=== PATIENT | female | born 1980 | race Caucasian/White ===

== ENCOUNTER 2016-12-29 00:22 | Emergency (ER) | payer BC, OTHER ==
[~2016-12-29] VITALS: Ht 165.1 cm; Wt 100.0 kg
[~2016-12-29 00:22] MED LIST: FAMO-137 PO; HYDR-4246 PO; IBUP-1724 PO; NAPR-849 PO; NO ROUTINE MEDS; PROC-14 PO
--- OUTSIDE RECORDS SUMMARY | 2016-12-29 00:33 | XMS REPORT | Continuity of Care Document ---
Author Author [facility] Organization [facility] Address Unknown Phone Unavailable Support Name Relationship Address Phone JOSSIE PETERS MD Caregiver [address] [place] [address] Unavailable OSVALDO GARCIA MD Caregiver [address] [place] [address] Unavailable KIRSTEN MUHAMMAD Next Of Kin [address] [place] [address] Insurance Providers Guarantor Izabela Mariscal Address [address] [phone] Email DENIED/NO TO PORT Payer [facility] Policy Number [id number] Subscriber's Name Izabela Mariscal Relationship 18 Self Group Number [id number] Payer Workers Compensation Subscriber's Name Izabela Mariscal Relationship 18 Self Chief Complaint and Reason for Visit Chief Complaint Dyspnea/Respdistress Reason for Visit Chemical exposure Viral gastroenteritis Problems Active Problems Medical Problem Onset Date Status Allergic reaction Unknown Acute Anaphylaxis Unknown Acute Hoffman's palsy Unknown Chronic Cellulitis Unknown Acute Cellulitis Unknown Acute Cellulitis of knee, left Unknown Acute Chest pressure Unknown Acute Contusion of hand Unknown Acute Difficulty breathing Unknown Acute Numbness and tingling of right arm and leg Unknown Acute Patellar bursitis of left knee Unknown Acute Sinusitis Unknown Acute Throat swelling Unknown Acute Past Problems Medical Problem Onset Date Chemical exposure Unknown Right knee pain Unknown Viral gastroenteritis Unknown Medications Current Home Medications Medication Dose Units Route Directions Days Qty Instructions Start Date Famotidine (Pepcid) 20 Mg Tablet 40 Mg Oral Daily 60 Tablet Hydrocodone/Acetaminophen (Botkins 5-325 Tablet) 5-325 Tablet 1 Tab Oral Four Times Daily as needed for Pain 20 06/10/16 Ibuprofen 200 Mg Tablet 2 Tab Oral Every 4 Hours as needed for Pain 06/24/16 Naproxen Sodium (Midol) 220 Mg Tablet 220 Mg Oral Twice Daily With Meals 06/24/16 No Routine Meds 06/24/16 Prochlorperazine Maleate (Compazine) 10 Mg Tablet 10 Mg Oral Four Times Daily 30 Tablet 06/24/16 Past Home Medications Medication Directions Ordered Status Alprazolam 0.25 Mg Tablet, 0.25 Mg Oral As Needed as needed for Anxiety 12/15 Discontinued Azithromycin (Zithromax) 250 Mg Tablet, 1 Tab Oral Daily 03/16/15 Discontinued Fluticasone Propionate (Flonase Allergy Relief 50 Mcg/Actuation Nasal) 9.9 Ml [place].susp, 1 PuffEach Nostril Daily 03/16/15 Discontinued Ondansetron (Zofran Odt) 4 Mg Tab.rapdis, 4 Mg Oral Q6h/0300,0900,1500,2100 03/16/15 Discontinued Prednisone 10 Mg Tablet, 10 Mg Oral As Directed 03/16/15 Discontinued Tramadol Hcl (Ultram) 50 Mg Tablet, 50 Mg Oral Q6h/0300,0900,1500,2100 for Pain 03/16/15 Discontinued Social History Social History Problem Response Recorded Date/Time Onset Date Status Hx Substance Use No 06/24/2016 6:00pm Not Applicable Not Applicable Hx Alcohol Use Y OCCASIONAL 06/24/2016 6:00pm Not Applicable Not Applicable Tobacco Usage smoke 04/11/2014 11:14am Not Applicable Not Applicable Query Response Start Date Stop Date Smoking Status Unknown if ever smoked Hospital Discharge Instructions No hospital discharge instructions. Plan of Care Discharge Date 06/24/16 7:19pm Disposition 01 DISCHARGED HOME, SELF-CARE Condition at Discharge Improved Instructions/Education Provided DI for Viral Gastroenteritis -- Adult Prescriptions See Medication Section Referrals OSVALDO GARCIA MD Address: [address] [place] [phone] Additional Instructions/Education Stay in fresh air as much as possible for the next 48 hours Drink lots of fluids Compazine 10 mg, one tablet 4 times daily as needed for nausea or cramps Pepcid 20 mg, 2 tablets daily to control stomach acid Return immediately for any worsening, otherwise follow up with your primary physician if symptoms persist past Monday. Care Plan and Goals Physician Care Plan Problem: Viral gastroenteritis and chemical exposure at work Goal: Follow up with primary care provider Instructions: Take medications and follow care plan as discussed/written Stay in fresh air as much as possible for the next 48 hours Drink lots of fluids Compazine 10 mg, one tablet 4 times daily as needed for nausea or cramps Pepcid 20 mg, 2 tablets daily to control stomach acid Return immediately for any worsening, otherwise follow up with your primary physician if symptoms persist past Monday. Functional Status No functional status results. Allergies, Adverse Reactions, Alerts Allergen Type Severity Reaction Status Last Updated Penicillin Allergy Severe ANAPHYLAXIS Active 06/10/16 Cephalexin Allergy Severe ANAPHYLAXIS Active 06/10/16 Immunizations Query Response on File Recorded Date/Time Hx Influenza Vaccination No 05/14/15 9:51pm Hx Tetanus, Diptheria, Pertussis Y UNKNOWN 4-5 YRS 05/14/15 9:51pm Hx Influenza Vaccination No 05/14/15 9:51pm Hx Tetanus Diptheria No 05/14/15 9:51pm Hx Tetanus, Diptheria, Pertussis Y UNKNOWN 4-5 YRS 05/14/15 9:51pm Influenza Vaccine Hx NOT CURRENT 06/24/16 6:00pm Tdap Vaccine Hx UTD PER PT 06/11/16 12:03am Vital Signs Acute Vital Signs Vital Response Date/Time Temperature (Fahrenheit) 98.0 deg F (96.8 - 99.1) 06/24/2016 7:19pm Temperature (Calculated Celsius) 36.14480 degrees C (36.0 - 37.3) 06/24/2016 7:19pm Pulse Rate (adult) 88 bpm (60 - 100) 06/24/2016 7:19pm Respiratory Rate 20 breaths/min (10 - 20) 06/24/2016 7:19pm O2 Sat by Pulse Oximetry 98 % (90 - 100) 06/24/2016 7:19pm Blood Pressure 130/60 mm Hg 06/24/2016 7:19pm Height (Feet) 5 feet 06/24/2016 5:55pm Height (Inches) 5.00 inches 06/24/2016 5:55pm Weight (Kilograms) 90.000 kg 06/24/2016 5:55pm Body Mass Index (BMI) 33.0 06/24/2016 5:55pm Results Laboratory Results Test Name Result Units Flags Reference Collection Date/Time Result Date/ Time Comments White Blood Count 9.6 T/MM3 4.5-11.0 06/24/2016 6:41pm 06/24/2016 6: 45pm Red Blood Count 4.43 M/MM3 4.00-5.20 06/24/2016 6:41pm 06/24/2016 6: 45pm Hemoglobin 13.0 GM/DL 12-16 06/24/2016 6:41pm 06/24/2016 6:45pm Hematocrit 38.2 % 36-46 06/24/2016 6:41pm 06/24/2016 6:45pm Mean Corpuscular Volume 86.2 UM3 80-100 06/24/2016 6:41pm 06/24/2016 6: 45pm Mean Corpuscular Hemoglobin 29.3 UUG 26-34 06/24/2016 6:41pm 2015 6:45pm Mean Corpuscular Hemoglobin Concent 34.0 GM/DL 31-37 06/24/2016 6:41pm 06/24/2016 6:45pm RDW Standard Deviation 37.4 FL 36.9-50.2 06/24/2016 6:41pm 06/24/2016 6 :45pm Platelet Count 259 T/MM3 130-400 06/24/2016 6:41pm 06/24/2016 6:45pm Mean Platelet Volume 9.0 UM3 L 9.4-12.4 06/24/2016 6:41pm 06/24/2016 6: 45pm Neutrophils (%) (Auto) 63.7 % 33-66 06/24/2016 6:41pm 06/24/2016 6: 45pm Lymphocytes (%) (Auto) 28.1 % 23-45 06/24/2016 6:41pm 06/24/2016 6: 45pm Monocytes (%) (Auto) 5.9 % 0-9.0 06/24/2016 6:41pm 06/24/2016 6:45pm Eosinophils (%) (Auto) 1.7 % 0-4 06/24/2016 6:41pm 06/24/2016 6:45pm Basophils (%) (Auto) 0.4 % 0-2 06/24/2016 6:41pm 06/24/2016 6:45pm Immature Granulocyte % (Auto) 0.2 % 0.0-0.5 06/24/2016 6:41pm 2015 6:45pm Absolute Neutrophils (auto) 6.1 T/MM3 1.8-7.7 06/24/2016 6:41pm 2015 6:45pm Absolute Lymphocytes (auto) 2.7 T/MM3 1-4.8 06/24/2016 6:41pm 2015 6:45pm Absolute Monocytes (auto) 0.6 T/MM3 0-0.8 06/24/2016 6:41pm 06/24/2016 6:45pm Absolute Eosinophils (auto) 0.2 T/MM3 0-0.5 06/24/2016 6:41pm 2015 6:45pm Absolute Basophils (auto) 0.0 T/MM3 0-0.2 06/24/2016 6:41pm 06/24/2016 6:45pm Absolute Immature Granulocyte (auto 0.02 T/MM3 0.00-0.03 06/24/2016 6: 41pm 06/24/2016 6:45pm Icterus Index < 2 0-7 06/24/2016 6:41pm 06/24/2016 6:56pm Chemistry Specimen Hemolysis < 15 0-25 06/24/2016 6:41pm 06/24/2016 6 :56pm 0-25: Specimen Exhibited No Hemolysis. Turbidity < 20 0-20 06/24/2016 6:41pm 06/24/2016 6:56pm Sodium Level 143 MEQ/L 134-144 06/24/2016 6:41pm 06/24/2016 6:56pm Potassium Level 3.8 MEQ/L 3.6-5 06/24/2016 6:41pm 06/24/2016 6:56pm Chloride Level 108 MEQ/L H 98-107 06/24/2016 6:41pm 06/24/2016 6:56pm Carbon Dioxide Level 28 MEQ/L 22-30 06/24/2016 6:41pm 06/24/2016 6: 56pm Anion Gap 7 MEQ/L 5-15 06/24/2016 6:41pm 06/24/2016 6:56pm Blood Urea Nitrogen 10.0 MG/DL 7-17 06/24/2016 6:41pm 06/24/2016 6: 56pm Creatinine 0.7 MG/DL 0.7-1.2 06/24/2016 6:41pm 06/24/2016 6:56pm BUN/Creatinine Ratio 14 RATIO 6-06/24/2016 6:41pm 06/24/2016 6:56pm Glomerular Filtration Rate Calc 94 06/24/2016 6:41pm 06/24/2016 6: 56pm Glucose Level 92 MG/DL 65-110 06/24/2016 6:41pm 06/24/2016 6:56pm Calculated Osmolality 274 MOSM/KG 261-280 06/24/2016 6:41pm 06/24/2016 6:56pm Calcium Level 8.3 MG/DL L 8.4-10.2 06/24/2016 6:41pm 06/24/2016 6:56pm Total Bilirubin 0.30 MG/DL 0.20-1.30 06/24/2016 6:41pm 06/24/2016 6: 56pm Alkaline Phosphatase 82 U/L 38-126 06/24/2016 6:41pm 06/24/2016 6:56pm Total Protein 6.7 G/DL 6.3-8.2 06/24/2016 6:41pm 06/24/2016 6:56pm Albumin 3.7 G/DL 3.5-5.0 06/24/2016 6:41pm 06/24/2016 6:56pm Globulin 3.0 G/DL 2.4-3.6 06/24/2016 6:41pm 06/24/2016 6:56pm Albumin/Globulin Ratio 1.2 RATIO 1.1-2.2 06/24/2016 6:41pm 06/24/2016 6 :56pm Aspartate Amino Transf (AST/SGOT) 18 U/L 14-36 06/24/2016 6:41pm 2015 6:56pm Alanine Aminotransferase (ALT/SGPT) 33 U/L 9-52 06/24/2016 6:41pm 06/24 6:56pm Lipase 74 U/L 23-300 06/24/2016 6:41pm 06/24/2016 6:56pm Procedures Procedure Status Date Provider(s) EMERGENCY DEPT VISIT Completed 06/10/16 Encounters Encounter Location Arrival/Admit Date Discharge/Depart Date Attending Provider Departed Emergency Room [facility] 06/24/16 5:55pm 06/24/16 7: 19pm JOSSIE PETERS MD Departed Emergency Room [facility] 06/10/16 11:06pm 06/11/16 12: 02am JOSSIE PETERS MD Recent Diagnosis
--- OUTSIDE RECORDS SUMMARY | 2016-12-29 00:33 | XMS REPORT | Continuity of Care Document ---
Author Author [facility] Organization [facility] Address Unknown Phone Unavailable Support Name Relationship Address Phone ALISSA FLOWER DO Caregiver [facility] [address] [place] [address] OLEGARIO AWAD Caregiver [address] [place] [address] KIRSTEN MUHAMMAD Next Of Kin [address] [place] [address] Insurance Providers Payer Name Policy Number Subscriber Name Relationship Self Pay Izabela Miranda 16 Self Problems Medical Problems Problem Onset Date Status Cellulitis Unknown Active Cellulitis Unknown Active Medications Medication Dose Route Sig Days/Qty Instructions Order Date Discontinued Date Status [None] 07/30/08 Active Lidocaine TOP NEEDED 04/11/14 Active Pregabalin THREE TIMES A DAY 04/11/14 Active Clindamycin HCl 300 Mg PO Every 6 Hours For INFLAMMATION 10 Days Active Hydrocodone/Acetaminophen 1 Tab PO EVERY 4-6 HOURS PRN PAIN 12 Qty Active Social History Social History Problem Response Recorded Date/Time Smoking Status Never smoker 04/11/2014 9:54am Hx Substance Use No 04/11/2014 9:54am Hx Alcohol Use Y OCCASIONAL 04/11/2014 9:54am Hospital Discharge Instructions No hospital discharge instructions. Plan of Care No plan of care. Functional Status Query Response Date Recorded Physical Hygiene Self April 11, 2014 9:54am Disabilities None April 11, 2014 9:54am Devices Used None April 11, 2014 9:54am Dressing Self April 11, 2014 9:54am Ambulation Self April 11, 2014 9:54am Diet Self April 11, 2014 9:54am Mental Status Alert Oriented April 11, 2014 9:54am Disabilities None April 11, 2014 9:54am Devices Used None April 11, 2014 9:54am Physical Hygiene Self April 11, 2014 9:54am Dressing Self April 11, 2014 9:54am Ambulation Self April 11, 2014 9:54am Diet Self April 11, 2014 9:54am Allergies, Adverse Reactions, Alerts Allergen Type Severity Reaction Status Last Updated Penicillin Allergy Severe ANAPHYLAXIS Active 04/11/14 Cephalexin Allergy Severe ANAPHYLAXIS Active 04/11/14 Immunizations Name Given Type Hx Influenza Vaccination No Historical Hx Influenza Vaccination No Historical Hx Tetanus Diptheria No Historical Vital Signs Acute Vital Signs Vital Response Date/Time Temperature (Fahrenheit) 97.7 deg F (96.8 - 99.1) Temperature (Calculated Celsius) 36.29666 degrees C (36.0 - 37.3) Pulse Rate (adult) 86 bpm (60 - 100) Respiratory Rate 16 breaths/min (10 - 20) O2 Sat by Pulse Oximetry 97 % (90 - 100) Blood Pressure 116/65 mm Hg Height 5 ft 5 in Weight 203 lb Body Mass Index 33.0 kg/m^2 Results Test Source Date Result Interp. Ref. Range Comments Alanine Aminotransferase (ALT/SGPT) April 11, 2014 11:30am 22 U/L N 9-52 Albumin April 11, 2014 11:30am 4.0 G/DL N 3.5-5.0 Albumin/Globulin Ratio April 11, 2014 11:30am 1.2 RATIO N 1.1-2.2 Alkaline Phosphatase April 11, 2014 11:30am 97 U/L N 38-126 Anion Gap April 11, 2014 11:30am 11 MEQ/L N 5-15 Aspartate Amino Transf (AST/SGOT) April 11, 2014 11:30am 24 U/L N 14-36 BUN/Creatinine Ratio April 11, 2014 11:30am 23 RATIO N 6-26 Basophils # (Auto) April 11, 2014 11:30am 0.1 T/MM3 N 0-0.2 Basophils (%) (Auto) April 11, 2014 11:30am 0.6 % N 0-2 Blood Urea Nitrogen April 11, 2014 11:30am 14.0 MG/DL N 7-17 C-Reactive Protein April 11, 2014 11:30am 7.5 MG/L N 0-9 Calcium Level April 11, 2014 11:30am 8.9 MG/DL N 8.4-10.2 Calculated Osmolality April 11, 2014 11:30am 271 MOSM/KG N 261-280 Carbon Dioxide Level April 11, 2014 11:30am 27 MEQ/L N 22-30 Chloride Level April 11, 2014 11:30am 103 MEQ/L N 98-107 Creatinine April 11, 2014 11:30am 0.6 MG/DL L 0.7-1.2 Eosinophils # (Auto) April 11, 2014 11:30am 0.2 T/MM3 N 0-0.5 Eosinophils (%) (Auto) April 11, 2014 11:30am 1.8 % N 0-4 Globulin April 11, 2014 11:30am 3.3 G/DL N 2.4-3.6 Glucose Level April 11, 2014 11:30am 88 MG/DL N 65-110 Group A Streptococcus Screen March 06, 2009 12:44pm Negative - Strep culture confirmation to follow Hematocrit April 11, 2014 11:30am 43.8 % N 36-46 Hemoglobin April 11, 2014 11:30am 14.6 GM/DL N 12-16 Lymphocytes # (Auto) April 11, 2014 11:30am 2.1 T/MM3 N 1-4.8 Lymphocytes (%) (Auto) April 11, 2014 11:30am 19.7 % L 23-45 Mean Corpuscular Hemoglobin April 11, 2014 11:30am 29.7 UUG N 26-34 Mean Corpuscular Hemoglobin Concent April 11, 2014 11:30am 33.3 GM/DL N 31-37 Mean Corpuscular Volume April 11, 2014 11:30am 89.2 UM3 N 80-100 Mean Platelet Volume April 11, 2014 11:30am 8.8 UM3 L 9.4-12.4 Monocytes # (Auto) April 11, 2014 11:30am 0.7 T/MM3 N 0-0.8 Monocytes (%) (Auto) April 11, 2014 11:30am 6.5 % N 0-9.0 Monoscreen March 06, 2009 12:44pm Negative - Neutrophils # (Auto) April 11, 2014 11:30am 7.7 T/MM3 N 1.8-7.7 Neutrophils (%) (Auto) April 11, 2014 11:30am 71.0 % H 33-66 Platelet Count April 11, 2014 11:30am 267 T/MM3 N 130-400 Potassium Level April 11, 2014 11:30am 4.3 MEQ/L N 3.6-5 RDW Standard Deviation April 11, 2014 11:30am 40.6 FL N 36.9-50.2 Red Blood Count April 11, 2014 11:30am 4.91 M/MM3 N 4.00-5.20 Sodium Level April 11, 2014 11:30am 141 MEQ/L N 134-144 Total Bilirubin April 11, 2014 11:30am 0.30 MG/DL N 0.20-1.30 Total Protein April 11, 2014 11:30am 7.3 G/DL N 6.3-8.2 Urine Bilirubin January 01, 2008 1:30pm Negative - Has specimen been collected/obtained? Y Urine Blood January 01, 2008 1:30pm Trace - Has specimen been collected /obtained? Y Urine Collection Type January 01, 2008 1:30pm Voided - Has specimen been collected/obtained? Y Urine Color January 01, 2008 1:30pm Yellow - Has specimen been collected/obtained? Y Urine Glucose (UA) January 01, 2008 1:30pm Negative - Has specimen been collected/obtained? Y Urine Ketones January 01, 2008 1:30pm Negative - Has specimen been collected/obtained? Y Urine Leukocyte Esterase January 01, 2008 1:30pm Trace - Has specimen been collected/obtained? Y Urine Nitrite January 01, 2008 1:30pm Negative - Has specimen been collected/obtained? Y Urine Protein January 01, 2008 1:30pm Negative - Has specimen been collected/obtained? Y Urine RBC January 01, 2008 1:30pm None seen /HPF - Has specimen been collected/obtained? Y Urine Specific [place] January 01, 2008 1:30pm 1.020 - Has specimen been collected/obtained? Y Urine Squamous Epithelial Cells January 01, 2008 1:30pm Moderate - Has specimen been collected/obtained? Y Urine Turbidity January 01, 2008 1:30pm Clear - Has specimen been collected/obtained? Y Urine Urobilinogen January 01, 2008 1:30pm Normal EU/DL - Has specimen been collected/obtained? Y Urine WBC January 01, 2008 1:30pm 0-1 /HPF - Has specimen been collected/obtained? Y Urine pH January 01, 2008 1:30pm 5.0 - Has specimen been collected/ obtained? Y White Blood Count April 11, 2014 11:30am 10.8 T/MM3 N 4.5-11.0 Chemistry Specimen Hemolysis April 11, 2014 11:30am 22 N 0-25 0-25: No Hemolysis.26-70: Slight Hemolysis - can falsely elevate K and Urine Protein. 71-285: Moderate Hemolysis - can falsely elevate K, Troponin I, CA 19-9, PTH, CSF GLucose, and Urine Protein, and can falsely decrease Phenytoin. 286-999: Gross Hemolysis - can falsely elevate K, Troponin I, CA 19-9, PTH, CSF Glucose, and Urine Protine, and can falsely decrease Phenytoin. Recommend specimen recollection. Turbidity April 11, 2014 11:30am < 20 0-20 Glomerular Filtration Rate Calc April 11, 2014 11:30am 114 - Immature Granulocyte # (Auto) April 11, 2014 11:30am 0.04 T/MM3 H 0.00- 0.03 Immature Granulocyte % (Auto) April 11, 2014 11:30am 0.4 % N 0.0-0.5 Icterus Index April 11, 2014 11:30am < 2 0-7 Blood Culture Blood June 14, 2008 11:40am NO GROWTH AFTER 5 DAYS Group A Streptococcus Culture Throat March 06, 2009 1:04pm Procedures No known history of procedures. Encounters Encounter Location Date/Time Departed Emergency Room [facility] 04/11/14 9:52am Recent Diagnosis
--- OUTSIDE RECORDS SUMMARY | 2016-12-29 00:33 | XMS REPORT | Continuity of Care Document ---
Author Author [facility] Organization [facility] Address Unknown Phone Unavailable Support Name Relationship Address Phone JOSSIE PETERS MD Caregiver [address] [place] [address] Unavailable KIRSTEN MUHAMMAD Next Of Kin [address] [place] [address] Insurance Providers Payer Name Policy Number Subscriber Name Relationship Workers Compensation Izabela Miranda 16 Self Advance Directives Directive Response Recorded Date/Time Advanced Directives Type None 12/05/14 11:42pm Problems Medical Problems Problem Onset Date Status Cellulitis Unknown Active Cellulitis Unknown Active Throat swelling Unknown Active Anaphylaxis Unknown Active Difficulty breathing Unknown Active Allergic reaction Unknown Active Medications Medication Dose Route Sig Days/Qty Instructions Order Date Discontinued Date Status [None] 07/30/08 Active Lidocaine TOP NEEDED 04/11/14 Active Pregabalin THREE TIMES A DAY 04/11/14 Active Clindamycin HCl 300 Mg PO Every 6 Hours For INFLAMMATION 10 Days Active Hydrocodone/Acetaminophen 1 Tab PO EVERY 4-6 HOURS PRN PAIN 12 Qty Active Epinephrine 1 Amp IM EVERY 5 MINUTES X 3 For ANAPHYLAXIS 1 Qty Active Social History Social History Problem Response Recorded Date/Time Chewing Tobacco Status No 12/06/2014 12:05am Hx Substance Use No 12/06/2014 12:05am Hx Alcohol Use Y OCCASIONAL 12/06/2014 12:05am Tobacco Usage smoke 04/11/2014 11:14am Query Response Start Date Stop Date Smoking Status Never smoker Hospital Discharge Instructions No hospital discharge instructions. Plan of Care No plan of care. Functional Status Query Response Date Recorded Physical Hygiene Self December 06, 2014 12:05am Disabilities None December 06, 2014 12:05am Devices Used None December 06, 2014 12:05am Dressing Self December 06, 2014 12:05am Ambulation Self December 06, 2014 12:05am Diet Self December 06, 2014 12:05am Mental Status Alert December 06, 2014 1:29am Disabilities None December 06, 2014 12:05am Devices Used None December 06, 2014 12:05am Physical Hygiene Self December 06, 2014 12:05am Dressing Self December 06, 2014 12:05am Ambulation Self December 06, 2014 12:05am Diet Self December 06, 2014 12:05am Allergies, Adverse Reactions, Alerts Allergen Type Severity Reaction Status Last Updated Penicillin Allergy Severe ANAPHYLAXIS Active 04/11/14 Cephalexin Allergy Severe ANAPHYLAXIS Active 04/11/14 Immunizations Name Given Type Hx Influenza Vaccination No Historical Hx Tetanus, Diptheria, Pertussis Y UNKNOWN 4-5 YRS Historical Hx Influenza Vaccination No Historical Hx Tetanus Diptheria No Historical Hx Tetanus, Diptheria, Pertussis Y UNKNOWN 4-5 YRS Historical Vital Signs Acute Vital Signs Vital Response Date/Time Temperature (Fahrenheit) 97.1 deg F (96.8 - 99.1) Temperature (Calculated Celsius) 36.67736 degrees C (36.0 - 37.3) Pulse Rate (adult) 84 bpm (60 - 100) Respiratory Rate 20 breaths/min (10 - 20) O2 Sat by Pulse Oximetry 95 % (90 - 100) Blood Pressure 107/53 mm Hg Height 5 ft 6 in Weight 214 lb Body Mass Index 34.0 kg/m^2 Results Test Source Date Result Interp. [...] Has specimen been collected/obtained? Y Urine Specific [place]vid January 01, 2008 1:30pm 1.020 - Has [...] Encounters Encounter Location Date/Time Departed Emergency Room [facility] 12/05/14 11:38pm Recent Diagnosis
[2016-12-29 00:42] VITALS: Ht 165.1 cm; Wt 100.0 kg
--- NOTE | 2016-12-29 00:55 | NUR ---
FRIEND RUDI MALE TO ROOM FROM LOBBY TO SIT WITH PT TV ON AT THIS TIME
[2016-12-29] MEDS ORDERED: NORMAL SALINE 1,000 ML IV ONE (02:09)
--- NOTE | 2016-12-29 02:14 | ERPDOC ---
Departure Disposition Decision Date: Dec 29, 2016 Disposition Decision Time: 04:01 Disposition: 01 DISCHARGED HOME, SELF-CARE Impression Impression Impression: Primary Impression: UTI (urinary tract infection) Urinary tract infection type: acute cystitis Hematuria presence: with hematuria Qualified Codes: N30.01 - Acute cystitis with hematuria Severity: Moderate Condition: Improved Seen By: Physician only Referrals: OSVALDO GARCIA MD (Family) 2 Days Patient Instructions: Urinary Tract Infection in Women (ED) Problems/Meds/Labs Reviewed?: Yes Medications reviewed and manag: Yes Additional Instructions: You have a urinary tract infection. Take the antibiotic as prescribed. Drink plenty of fluids. Follow up with your doctor in the next few days. Follow up care ordered?: Yes Mental Status: Alert, Oriented Scripts Nitrofurantoin Monohyd/M-Cryst (Macrobid 100 mg Capsule) 100 Mg Capsule 100 MG PO BID for 7 Days, #14 CAP 0 Refills Prov: M DO 12/29/16 HPI - Abdominal Pain General Chief Complaint: Abdominal Pain Stated Complaint: COUGHING UP BLOOD,R SIDE AROUND TO ABD PAIN Time Seen by Provider: 02:09 Source: patient History/Exam Limitations: no limitations HPI - Abdominal Pain Initial Comments 36yo woman presents to the ER tonight with RLQ abd pain. Pain started last afternoon in her right flank. Pain wraps around to the front. Mostly burning/ cramping pain with occasional spikes of sharp pain. Has tried aleve without relief; became nauseated, and had 'red flecks' in the tissue when she spit up. Occurred At: home Onset: Gradual, Getting worse Duration: 6-12 hrs Quality: burning, cramping, sharpness Location: right flank Radiation: RLQ Activities at Onset: none Modifying Factors: IMPROVES WITH: lying down, rest, WORSE WITH: movement, palpation Associated Symptoms: fever/chills, nausea/vomiting Hx of Similar Symptoms: No Allergies: Coded Allergies: Penicillins (Verified Allergy, Severe, ANAPHYLAXIS, 12/29/16) cephalexin (Verified Allergy, Severe, ANAPHYLAXIS, 12/29/16) Past History Patient Surgical History cholecystectomy section x 3 multiple hand surgeries bilaterally after an industrial accident D & C Past Medical History ENMT: Hoffman's Palsy Hx Echocardiogram: No GI: gallbladder disease Surgical History General: gallbladder Reproductive/: D&C, Joint: hand Family History Family PMH: FOUND: other Vaccines Hx Influenza Vaccination: No Hx Tetanus Diptheria: No Hx Tetanus, Diptheria, Pertuss: Yes (UNKNOWN 4-5 YRS) Social History Does patient use chewing tobac: No Second Hand Exposure: No Substance Use Type: does not use Alcohol Intake: none Sexuality: male partner Review of Systems Constitutional Constitutional: fever GI Upper Abdomen: nausea, pain, vomiting, DENIES: dysphagia, food intolerances, heartburn/indigestion, hematemesis Lower Abdomen: diarrhea (Chronic since cholecystectomy), pain, DENIES: blood in stool, cheryl-colored stools, constipation, melena, painful BM General: frequency All other Systems All Other Systems: Reviewed and Negative Physical Exam General General Nourishment: well nourished, well developed, appears stated age, no acute distress, adult, obese General Body Habitus: well groomed Vitals and Pain First Documented Vital Signs Date Time Temp Pulse Resp B/P Pulse Ox O2 Delivery O2 Flow Rate FiO2 12/29/16 00:42 97.8 86 16 122/61 98 Room Air Weight: Kilograms: 100.000 Height (feet): 5 Height (inches): 5.00 Triage Pain Scale: RN VS reviewed by Provider: Yes Normal Exams: Head: Normocephalic w/o trauma Eyes: Pupils are PERRLA w/ EOMI, No scleral icterus, irritation ENMT: No facial trauma, nasal exudates, pharyngeal erythema Neck: Full range of motion, without adenopathy, JVD Lymphatic: No lymphadenopathy Musculoskeletal: No tenderness, or deformity noted Integumentary: No rashes, hives, or bruising noted Neurologic: Patient is alert, and oriented Psychiatric: Patient exhibits, appropriate attention Respiratory (brief) Respiratory: FOUND: clear all lennon, equal bilaterally, symmetrical, NOT FOUND : rales, wheezes Cardiovascular (brief) Cardiac: FOUND: regular rate, regular rhythm, NOT FOUND: click, gallop, murmur , pedal edema, peripheral edema, rub Capillary Refill: <2 sec Pulses: all distal extremities, equal, strong Abdomen (brief) Abdominal Brief: FOUND: bowel normo active x4, soft, tender (In RUQ, RLQ, and LLQ), NOT FOUND: distended, hepatosplenomegaly, pulsatile mass Comments Pos Robert's Differential Diagnoses Considering: Appendicitis, Bowel Obstruction, Constipation, Diverticulitis, Gastroenteritis, GERD, Hernia, IBS, Ileus, Pneumonia, Pyelonephritis, Renal Colic, Tubovarian Abscess, UTI, Volvulus Progress Results/Orders Orders Procedure Category Date Status Time Iv Lock (Ed Only) EDM 12/29/16 Transmitted 02:09 Nothing By Mouth (Ed EDM 12/29/16 Transmitted Only) 02:09 Cbc W/Auto LAB 12/29/16 Complete Diff-Reflex Manual 02:09 Bmp - Basic Metabolic LAB 12/29/16 Complete Panel 02:09 Lipase LAB 12/29/16 Complete 02:09 LAB 12/29/16 Complete Qualitative, Urine 02:09 Normal Saline (Normal PHA 12/29/16 Complete Saline Iv) 02:09 Ondansetron Inj PHA 12/29/16 Complete (Zofran) 02:15 Ketorolac (Toradol) PHA 12/29/16 Complete 02:15 Ct Abd/Pelvis CT 12/29/16 Taken W/Contrast Only 02:09 UA, LAB 12/29/16 Complete Dip&Micro(Complete) & 02:59 Iohexol (Omnipaque) PHA 12/29/16 Complete 03:19 Normal Saline (Ns) PHA 12/29/16 Complete 03:20 Saline Flush (Iv PHA 12/29/16 Complete Flush) 03:20 Nitrofurantoin PHA 12/29/16 Complete (Macrobid) (Macrobid) 04:15 Lab Results Laboratory Tests Test 12/29/16 02:59 12/29/16 03:00 Urine Collection Type Cleancatch-midstream Urine Color Yellow Urine Turbidity Sl cloudy Urine pH 7.0 Urine Specific [place] 1.020 Urine Protein Negative Urine Glucose (UA) Negative Urine Ketones Negative Urine Blood 3+ Urine Nitrite Negative Urine Bilirubin Negative Urine Urobilinogen 2.0EU/DL Urine Leukocyte Esterase Trace Urine RBC 1-3/HPF Urine WBC 3-5/HPF Urine Squamous Epithelial Cells 5-10 Urine Bacteria 1+ Urine Culture Indicated Cult not indicated Urine Test Negative White Blood Count 9.9T/MM3 Red Blood Count 4.57M/MM3 Hemoglobin 13.3GM/DL Hematocrit 40.0% Mean Corpuscular Volume 87.5UM3 Mean Corpuscular Hemoglobin 29.1UUG Mean Corpuscular Hemoglobin Concent 33.3GM/DL RDW Standard Deviation 38.4FL Platelet Count 272T/MM3 Mean Platelet Volume 9.3UM3 Immature Granulocyte % (Auto) 0.2% Neutrophils (%) (Auto) 58.4% Lymphocytes (%) (Auto) 32.0% Monocytes (%) (Auto) 6.8% Eosinophils (%) (Auto) 2.3% Basophils (%) (Auto) 0.3% Absolute Immature Granulocyte (auto 0.02T/MM3 Absolute Neutrophils (auto) 5.8T/MM3 Absolute Lymphocytes (auto) 3.2T/MM3 Absolute Monocytes (auto) 0.7T/MM3 Absolute Eosinophils (auto) 0.2T/MM3 Absolute Basophils (auto) 0.0T/MM3 Turbidity < 20 Sodium Level 144MEQ/L Potassium Level 3.5MEQ/L Chloride Level 106MEQ/L Carbon Dioxide Level 25MEQ/L Anion Gap 13MEQ/L Blood Urea Nitrogen 16.0MG/DL Creatinine 0.7MG/DL Glomerular Filtration Rate Calc 94 BUN/Creatinine Ratio 23RATIO Glucose Level 97MG/DL Calculated Osmolality 278MOSM/KG Calcium Level 8.4MG/DL Icterus Index < 2 Lipase 84U/L Chemistry Specimen Hemolysis < 15 Medications Current ED Medications Sodium Chloride (Normal Saline IV) 1,000 ml @ 0 mls/hr Q0M ONCE IV Last administered on 12/29/16 03:09; Start 12/29/16 at 02:09; Stop 12/29/16 at 02:11 ; Status DC Ondansetron HCl (Zofran) 4 mg O ONCE IV Last administered on 12/29/16 03:09; Start 12/29/16 at 02:15; Stop 12/29/16 at 02:16; Status DC Ketorolac Tromethamine (Toradol) 30 mg O ONCE IV Last administered on 03:12; Start 12/29/16 at 02:15; Stop 12/29/16 at 02:16; Status DC Iohexol 1 bottle 1 bottle STK-MED ONCE .ROUTE ; Start 12/29/16 at 03:19; Stop at 03:20; Status DC Sodium Chloride (NS) 100 ml @ As Directed STK-MED ONCE .ROUTE ; Start 12/29/16 at 03:20; Stop 4/13/17 at 03:21; Status DC Sodium Chloride (Iv Flush) 10 ml STK-MED ONCE .ROUTE ; Start 12/29/16 at 03:20; Stop 12/29/16 at 03:21; Status DC Nitrofurantoin Macrocrystals (Macrobid) 100 mg O ONCE PO Last administered on 12/29/16t 04:11; Start 12/29/16 at 04:15; Stop 12/29/16 at 04:16; Status DC Progress Progress Pt with LE+, bacteria, and blood. No other acute abdominal findings. Will treat as UTI; discuss RTC precautions. Pt voiced understanding of dx, prognosis, and tx. F/u with PCM. CT CT : CT: Abd/Pelvis IV contrast Interpretation: Normal, Reviewed Written Report RIANNA SORENSEN DO Dec 29, 2016 02:14
[2016-12-29] MEDS ORDERED: KETOROLAC 30mg/ml INJECTION IV ONE (02:15)
[2016-12-29] MEDS ORDERED: ONDANSETRON 4mg/2ml INJECTION IV ONE (02:15)
--- NOTE | 2016-12-29 03:00 | NUR ---
IVL IVL STARTED IN THE RIGHT FOREARM WITH #20GA, BY Latasha BONILLA RN
[2016-12-29 03:06] LABS: BLOOD, URINE 3+ (NEGATIVE); COLOR,URINE YELLOW (YELLOW); LEUKOCYTE ESTERASE ,URINE TRACE (NEGATIVE); NITRITE,URINE NEGATIVE (NEGATIVE)
[2016-12-29 03:06] LABS: BASOPHILS % (AUTO) 0.3 % (0-2); EOSINOPHILS # (AUTO) 0.2 T/MM3 (0-0.5); EOSINOPHILS % (AUTO) 2.3 % (0-4); HGB - HEMOGLOBIN 13.3 GM/DL (12-16); IMMATURE GRANULOCYTE # (AUTO) 0.02 T/MM3 (0.00-0.03); IMMATURE GRANULOCYTE % (AUTO) 0.2 % (0.0-0.5); LYMPHOCYTES # (AUTO) 3.2 T/MM3 (1-4.8); MEAN CORPUSCULAR HGB 29.1 UUG (26-34); MEAN CORPUSCULAR HGB CONC(MCHC 33.3 GM/DL (31-37); MEAN CORPUSCULAR VOLUME 87.5 UM3 (80-100); MEAN PLATELET VOLUME 9.3 UM3 (9.4-12.4); MONOCYTES # (AUTO) 0.7 T/MM3 (0-0.8); MONOCYTES % (AUTO) 6.8 % (0-9.0); NEUTROPHILS #(AUTO)-ABSOLUTE 5.8 T/MM3 (1.8-7.7); NEUTROPHILS % (AUTO) 58.4 % (33-66); RED BLOOD COUNT 4.57 M/MM3 (4.00-5.20); WBC - WHITE BLOOD COUNT 9.9 T/MM3 (4.5-11.0)
--- NOTE | 2016-12-29 03:09 | NUR ---
IV FLUID #1 IV 1000CC NS STARTED AT 999CC/HR IV SITE WITHOUT REDNESS OR SWELLING
--- NOTE | 2016-12-29 03:09 | NUR ---
ZOFRAN IV ZOFRAN GIVEN FOR NAUSEA AND CRAMPING
--- NOTE | 2016-12-29 03:12 | NUR ---
TORADOL IV TORADOL GIVEN FOR PAIN PT RATES HER PAIN 10/10 WATCHING TV WITH ADULT MALE
[2016-12-29 03:15] LABS: ANION GAP 13 MEQ/L (5-15); BUN/CREATININE RATIO 23 RATIO (6-26); CALCIUM 8.4 MG/DL (8.4-10.2); CHLORIDE 106 MEQ/L (98-107); CO2 - CARBON DIOXIDE 25 MEQ/L (22-30); CREATININE 0.7 MG/DL (0.7-1.2); GLOMERULAR FILTRATION RATE 94; GLUCOSE 97 MG/DL (65-110); LIPASE 84 U/L (23-300); POTASSIUM 3.5 MEQ/L (3.6-5); SODIUM 144 MEQ/L (134-144)
[2016-12-29] MEDS ORDERED: IOHEXOL 300 MG/ML 100ml INJECTION ONE (03:19)
[2016-12-29] MEDS ORDERED: NORMAL SALINE 100 ML ONE (03:20)
[2016-12-29] MEDS ORDERED: SALINE FLUSH 10ml SYRINGE ONE (03:20)
[2016-12-29 03:25] LABS: BACTERIA,URINE 1+ (NEGATIVE)
--- NOTE | 2016-12-29 03:26 | NUR ---
CT PT TAKEN TO CT PER CART
--- NOTE | 2016-12-29 03:40 | NUR ---
ROOM PT RETURNED TO ROOM [address] ADULT MALE REMAINS AT BEDSIDE
--- OUTSIDE RECORDS SUMMARY | 2016-12-29 03:44 | XMS REPORT | Continuity of Care Document ---
Author Author [facility] Organization [facility] Address Unknown Phone Unavailable Support Name Relationship Address Phone JOSSIE PETERS MD Caregiver [address] [place] [address] Unavailable KIRSTEN MUHAMMAD Next Of Kin [address] [place] [address] Insurance Providers Payer Name Policy Number Subscriber [...] F (96.8 - 99.1) Temperature (Calculated Celsius) [phone] degrees C (36.0 - 37.3) Pulse Rate [...] Has specimen been collected/obtained? Y Urine Specific [place] January 01, 2008 1:30pm 1.020 - Has [...] Encounters Encounter Location Date/Time Departed Emergency Room [facility] 12/05/14 11:38pm Recent Diagnosis
--- OUTSIDE RECORDS SUMMARY | 2016-12-29 03:44 | XMS REPORT | Continuity of Care Document ---
Author Author [facility] Organization [facility] Address Unknown Phone Unavailable Support Name Relationship Address Phone ALISSA FLOWER DO Caregiver [facility] [address] [place] [address] OLEGARIO AWAD Caregiver [address] [place] [address] KIRSTEN MUHAMMAD Next Of Kin [address] [place] [address] Insurance Providers Payer Name Policy Number Subscriber [...] F (96.8 - 99.1) Temperature (Calculated Celsius) [phone] degrees C (36.0 - 37.3) Pulse Rate [...] Has specimen been collected/obtained? Y Urine Specific [place] January 01, 2008 1:30pm 1.020 - Has [...] Encounters Encounter Location Date/Time Departed Emergency Room [facility] 04/11/14 9:52am Recent Diagnosis
--- NOTE | 2016-12-29 03:45 | NUR ---
STATUS PT REPORTS HER PAIN IS MUCH BETTER RATES PAIN 3/ NOW DENIES NAUSEA AND HAD NOT HAD ANY VOMITING SINCE ARRIVAL TO ED PT WATCHING TV WITH FRIEND AND LAUGHING WITH CONVERSATION
[2016-12-29] MEDS ORDERED: NITR100C4 PO (04:02)
--- NOTE | 2016-12-29 04:11 | NUR ---
IV FLUID IV NS STOPPED IV SITE WITHOUT REDNESS OR SWELLING 738CC INFUSED
--- NOTE | 2016-12-29 04:11 | NUR ---
MACROBID PO MACROBID GIVEN ORDERED PT TAKES MED EASILY WITH WATER
[2016-12-29] MEDS ORDERED: NITROFURANTOIN (Macrobid) 100mg CAP PO ONE (04:15)
--- NOTE | 2016-12-29 04:15 | NUR ---
IVL IVL DC'D WITH CATH INTACT DRSG APPLIED TO IV SITE PT MAJO WELL
--- NOTE | 2016-12-29 04:16 | NUR ---
INSTRUCTIONS DISMISSAL AND MEDICATION INSTRUCTIONS GIVEN TO PT RX GIVEN FOR MACROBID WITH INSTRUCTIONS PT VERBALIZED UNDERSTANDING OF ALL
[2016-12-29 04:19] VITALS: BP 117/63; PULSE 79; RESP 16; TEMP 97.8; O2SAT 98
--- NOTE | 2016-12-29 04:19 | NUR ---
DISMISS PT DISMISSED AMBULATORY WITH ADULT MALE
--- NOTE | 2016-12-29 08:00 | DI ---
Indication: ITS.REASON: Abd pain (RLQ) PROCEDURE: CT ABD/PELVIS W/CONTRAST ONLY: Encounter: Initial Comparison: CT abdomen and pelvis dated March 16, 2015 Technique: Axial CT images were performed through the abdomen and pelvis after the administration of intravenous contrast. Coronal and sagittal two-dimensional reformats. Automated Exposure Control and Iterative Reconstruction dose reducing techniques were utilized. Contrast: Omnipaque 300 100 mL Findings: The lung bases are clear. The liver is unremarkable. Gallbladder is surgically absent. The spleen with accessory splenule, pancreas, adrenal glands and kidneys are normal. No abdominal or pelvic adenopathy. Bladder normal. Uterus and ovaries are grossly normal. No free fluid or free air. No evidence of a bowel obstruction. The appendix is gas-filled and normal. Bone windows are unremarkable. Impression: No acute disease process. There is a preliminary report by virtual radiologic. .
== END 2016-12-29 04:19 | disposition home or self-care (01) ==
LOC: ED 00:22
DX: N30.01 Acute cystitis with hematuria (principal)
CPT/HCPCS: 36415; 80048; 81001; 81025; 83690; 85025